=== PATIENT | male | born 1945 | race Caucasian/White ===

== ENCOUNTER 2019-03-06 10:02 | Day surgery (SDC) | payer MEDICARE, BC ==
[2019-03-01 09:29] LABS: BASOPHILS % (AUTO) 0.8 % (0-1); EOSINOPHILS # (AUTO) 0.3 X10'3 (0-0.9); EOSINOPHILS % (AUTO) 4.2 % (0-6); HEMATOCRIT 47.3 % (42.0-52.0); HEMOGLOBIN 16.7 g/dl (14.0-17.9); LYMPHOCYTES # (AUTO) 0.7 X10'3 (1.1-4.8); LYMPHOCYTES % (AUTO) 10.6 % (21-51); MEAN CORPUSCULAR HEMOGLOBIN 34.1 PG (27.0-31.0); MEAN CORPUSCULAR HGB CONC 35.3 g/dL (33.0-36.5); MEAN CORPUSCULAR VOLUME 96.5 FL (78-98); MEAN PLATELET VOLUME 7.8 FL (7.4-10.4); MONOCYTES % (AUTO) 15.6 % (2-12); NEUTROPHILS # (AUTO) 4.5 X10'3 (1.8-7.7); NEUTROPHILS % (AUTO) 68.8 % (42-75); PLATELET COUNT 167 X10'3 (140-440); RED CELL DISTRIBUTION WIDTH 13.2 % (11.5-14.5); WHITE BLOOD COUNT 6.5 X10'3 (4.5-11.0)
[2019-03-01 09:38] LABS: ALBUMIN 3.9 G/DL (3.4-5.0); ANION GAP 7 (8-16); BLOOD UREA NITROGEN 13 MG/DL (7-18); CALCIUM 9.4 MG/DL (8.5-10.1); CHLORIDE 101 MMOL/L (99-107); GLUCOSE 100 MG/DL (70-104); POTASSIUM 4.1 MMOL/L (3.5-5.1); SODIUM 135 MMOL/L (135-145); TOTAL CARBON DIOXIDE 26.8 MMOL/L (24-32); eGFR 73 ML/MIN
[2019-03-01 09:46] LABS: PARTIAL THROMBOPLASTIN TIME 50 SECONDS (22-32)
[2019-03-06] VITALS (9 sets, daily range): BP systolic 121–132; BP diastolic 76–95
[~2019-03-06] VITALS: Ht 177.8 cm; Wt 100.5 kg
[2019-03-06] MEDS ORDERED: normal saline 1,000 ML IV SCH (10:50)
[2019-03-06] MEDS ORDERED: LORazepam 0.5 MG tablet PO PRN (10:50)
[2019-03-06] MEDS ORDERED: diphenhydrAMINE 25mg capsule PO PRN (10:50)
[2019-03-06] MEDS ORDERED: LIDOcaine 1% (10mg/ml)w/preservative injection 20ml MDV ONE (11:43)
[2019-03-06] MEDS ORDERED: iohexol 350MG/ML 100ml bottle IV ONE (11:43)
[2019-03-06] MEDS ORDERED: APIX5TAB3 PO (11:56)
[2019-03-06] MEDS ORDERED: FISH12002 PO (11:56)
[2019-03-06] MEDS ORDERED: MULT1TAB74 PO (11:56)
[2019-03-06] MEDS ORDERED: DULO-31 PO (11:56)
[2019-03-06] MEDS ORDERED: GLUC-131 PO (11:56)
[2019-03-06] MEDS ORDERED: CYAN-19 PO (11:56)
[2019-03-06] MEDS ORDERED: CHOL400C8 PO (11:56)
[2019-03-06] MEDS ORDERED: BUS15T PO (11:56)
[2019-03-06] MEDS ORDERED: QUET25TA PO (11:56)
[2019-03-06] MEDS ORDERED: AMLO10TA4 PO (11:56)
[2019-03-06] MEDS ORDERED: METO25TA6 PO (11:56)
--- NOTE | 2019-03-06 12:22 | NUR ---
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 Daughter at bedside.
[2019-03-06] MEDS ORDERED: proCHLORperazine 10 MG/2 ml inj ONE (12:30)
[2019-03-06] MEDS ORDERED: midazolam 2 mg/2 ml injection ONE (12:30)
[2019-03-06] MEDS ORDERED: fentaNYL/PF 50MCG/1 ML 2ML syringe ONE (12:30)
--- NOTE | 2019-03-06 13:45 | NUR ---
Received back from laborer pipeline. Fem stop to right groin. Cath site CDI, no bleeding, no hematoma. VSS. Pt denies pain. Eating sandwich. Daughter at bedside.
[2019-03-06] MEDS ORDERED: acetaminophen 325mg tablet PO PRN (14:50)
[2019-03-06] MEDS ORDERED: normal saline 1000ml 1,000 ML IV SCH (14:50)
[2019-03-06] MEDS ORDERED: HYDROcodone/acetaminophen 10/325mg tab PO PRN (14:50)
[2019-03-06] MEDS ORDERED: OXAZEpam 15mg capsule PO PRN (14:50)
[2019-03-06] MEDS ORDERED: ondansetron/PF 4mg/2ml inj IV PRN (14:50)
[2019-03-06] MEDS ORDERED: proCHLORperazine 10 MG/2 ml inj IV PRN (14:50)
[2019-03-06] MEDS ORDERED: HYDROcodone/acetaminophen 5mg/325mg tablet PO PRN (14:50)
--- NOTE | 2019-03-06 17:17 | NUR ---
Pt has ambulated, voided. Right groin site CDI, no bleeding, no hematoma. IV dc'd. All home care, meds, and dc instructions, warning signs gone over with pt and daughters. They all verbalize understanding. Discharged home via wc in stable condition.
== END 2019-03-06 17:15 | disposition home or self-care (01) ==
LOC: SSTAY O 10:02
PROVIDERS: ATTEND Internal Medicine Interventional Cardiology
DX: R94.30 Abnormal result of cardiovascular function study, unspecified (principal); I10 Essential (primary) hypertension; I48.0 Paroxysmal atrial fibrillation
CPT/HCPCS: 36415; 80048; 85025; 85610; 85730; 93005; 93458; 99152; A6257; C1769; J0780; J1644; J2001; J2250; J3010; J7030; Q0163; Q9967; A4620